=== PATIENT | female | born 1940 | race Caucasian/White ===

== ENCOUNTER 2016-10-20 21:33 | Inpatient (IN) | payer OTHER ==
[~2016-10-20] VITALS: Ht 149.9 cm; Wt 33.7 kg
[~2016-10-20 21:33] MED LIST: ASPIRIN325 MG PO; ATORVASTATIN CA80 MG; ATROVENT 00.5 MG/2.5 IH; Advair 250/50 Diskus IH; Advair HFA 115/21 IH; CHANTIX1 MG PO; Ceftin PO; ECOTRIN325 MG PO; GLIPIZIDE5 MG PO; LIPITOR80 MG PO; LISINOPRIL-HCT1 EAC3 PO; METOPROLOL SUC100 MG PO; PROVENTIL,2.5 MG/0.5 IH; Proair HFA IH; SPIRIVA1 INHALATI IH; SPIRIVA1 INHALATI PO; TOPROL XL100 MG PO; Theo-Dur,Theocron PO; Ultram PO; ZESTORETIC 10-1 EAC1 PO; predniSONE PO
[2016-10-20 21:54] LABS: HEMATOCRIT 45.3 % (36.0-46.0); MCH 29.5 PG (29.0-34.0); MCHC 32.9 G/DL (30.0-36.0); MCV 89.7 FL (83-99); MEAN PLAT.VOLUME 10.4 uM^3 (9.5-12.4); PLATELET COUNT 243 K/uL (156-360); RBC DIS.WIDTH-CV 14.1 % (11.8-14.6); RBC DIS.WIDTH-SD 46.1 % (39-53); RED BLOOD COUNT 5.05 M/uL (3.80-5.20); WHITE BLOOD COUNT 14.6 K/uL (4.1-10.2)
[2016-10-20 22:01] LABS: PROTHROMBIN TIME 10.6 SEC (10.2-12.9)
[2016-10-20 22:05] LABS: CHLORIDE 102 mEq/L (99-109); POTASSIUM 3.2 mEq/L (3.7-5.4); SODIUM 136 mEq/L (136-147)
[2016-10-20 22:07] LABS: GLUCOSE 214 mg/dL (70-99)
[2016-10-20 22:08] LABS: ANION GAP 12 MEQ/L (2-14)
[2016-10-20 22:11] LABS: GFR ESTIMATE (CALCULATED) > 59 mL/min/; UREA NITROGEN (BUN) 11 mg/dL (9-23)
[2016-10-20 22:15] LABS: TROP-I INTERPRETATION NEGATIVE; TROPONIN-I 0.02 ng/mL (0.0-0.30)
[2016-10-21 01:36] LABS: CHLORIDE 105 mEq/L (99-109); POTASSIUM 3.4 mEq/L (3.7-5.4); SODIUM 137 mEq/L (136-147)
[2016-10-21 01:39] LABS: GLUCOSE 141 mg/dL (70-99)
[2016-10-21 01:40] LABS: ANION GAP 11 MEQ/L (2-14)
[2016-10-21 01:41] LABS: TOTAL BILIRUBIN 0.3 mg/dL (0.0-1.0)
[2016-10-21 01:42] LABS: ALKALINE PHOSPHATASE 62 IU/L (3-129); GFR ESTIMATE (CALCULATED) > 59 mL/min/
[2016-10-21 01:44] LABS: UREA NITROGEN (BUN) 10 mg/dL (9-23)
[2016-10-21 01:57] VITALS: BP 174/102
[2016-10-21 02:43] LABS: ADD MIUA? NO; BILIRUBIN NEGATIVE; BLOOD NEGATIVE; COLOR STRAW ((YELLOW)); GLUCOSE (STRIP) 150; KETONES 5; LEUKOCYTES NEGATIVE; NITRITE NEGATIVE; PROTEIN (STRIP) NEGATIVE; SPECIFIC GRAVITY 1.006 (1.000-1.030); UCUL ADDED? NO; UROBILINOGEN 0.2 MG/DL (0.2-1.0)
[2016-10-21 06:26] LABS: POINT-OF-CARE METER ID UU14117124
[2016-10-21 06:54] LABS: TROP-I INTERPRETATION NEGATIVE; TROPONIN-I 0.09 ng/mL (0.0-0.30)
[2016-10-21 07:13] LABS: Estimated Average Glucose 134 mg/dL (70-123); HEMOGLOBIN A1c (GLYCOHEMOGLOB) 6.3 % HGB (Below 5.7)
[2016-10-21 08:06] VITALS: BP 158/80
[2016-10-21 08:08] VITALS: BP 138/88
[2016-10-21 11:21] VITALS: BP 138/65
[2016-10-21 11:47] LABS: POINT-OF-CARE METER ID UU14117124
[2016-10-21 13:26] LABS: TROP-I INTERPRETATION NEGATIVE; TROPONIN-I 0.06 ng/mL (0.0-0.30)
[2016-10-21 15:43] VITALS: BP 125/74
[2016-10-21 16:22] LABS: POINT-OF-CARE METER ID UU14188577
[2016-10-21 21:29] LABS: POINT-OF-CARE METER ID UU13113675
[2016-10-21 22:54] VITALS: BP 120/56
[2016-10-22 02:48] VITALS: BP 103/57
[2016-10-22 06:33] LABS: POINT-OF-CARE METER ID UU14117124
[2016-10-22 06:45] LABS: BASOPHIL COUNT 0.1 K/uL (0-0.1); EOSINOPHIL (%) 0.1 % (0-5); IMMATURE GRANULOCYTE (%) 0.5 % (0.0-0.7); IMMATURE GRANULOCYTE COUNT 0.1 K/uL; INSTRUMENT ABS NEUTROPHIL CT 12.4 K/uL; LYMPHOCYTE COUNT 1.7 K/uL (1.0-2.8); MCH 28.9 PG (29.0-34.0); MCHC 31.6 G/DL (30.0-36.0); MCV 91.6 FL (83-99); MEAN PLAT.VOLUME 10.6 uM^3 (9.5-12.4); MONOCYTE (%) 8.3 % (3-12); MONOCYTE COUNT 1.3 K/uL (0-0.8); NEUTROPHIL (%) 79.6 % (45-76); NEUTROPHIL COUNT 12.4 K/uL (1.8-6.4); PLATELET COUNT 247 K/uL (156-360); RBC DIS.WIDTH-SD 47.5 % (39-53); RED BLOOD COUNT 4.15 M/uL (3.80-5.20); WHITE BLOOD COUNT 15.6 K/uL (4.1-10.2)
[2016-10-22 07:05] LABS: ALKALINE PHOSPHATASE 54 IU/L (3-129); ANION GAP 9 MEQ/L (2-14); CHLORIDE 101 MEQ/L (99-109); GFR ESTIMATE (CALCULATED) > 59 mL/min/; GLUCOSE 169 mg/dL (70-99); POTASSIUM 3.3 MEQ/L (3.7-5.4); SAMPLE HEMOLYSIS CHECK 0; SAMPLE ICTERIC CHECK 0; SAMPLE LIPEMIA CHECK 0; SODIUM 135 MEQ/L (136-147); TOTAL BILIRUBIN 0.7 MG/DL (0.0-1.0); UREA NITROGEN (BUN) 9 mg/dL (9-23)
[2016-10-22 08:25] VITALS: BP 117/57
[2016-10-22 11:39] LABS: POINT-OF-CARE METER ID UU14117124
[2016-10-22 12:51] VITALS: BP 105/52
[2016-10-22 16:25] VITALS: BP 99/54
[2016-10-22 16:55] LABS: POINT-OF-CARE METER ID UU14117124
[2016-10-22 19:46] VITALS: BP 97/51
[2016-10-22 22:10] LABS: POINT-OF-CARE METER ID UU14117124
[2016-10-22 23:30] VITALS: BP 137/65
[2016-10-23 03:49] VITALS: BP 163/74
[2016-10-23 06:42] LABS: BASOPHIL COUNT 0.1 K/uL (0-0.1); EOSINOPHIL (%) 0.2 % (0-5); HEMATOCRIT 34.5 % (36.0-46.0); IMMATURE GRANULOCYTE (%) 0.6 % (0.0-0.7); IMMATURE GRANULOCYTE COUNT 0.1 K/uL; INSTRUMENT ABS NEUTROPHIL CT 9.3 K/uL; LYMPHOCYTE COUNT 1.7 K/uL (1.0-2.8); MCH 28.9 PG (29.0-34.0); MCHC 31.3 G/DL (30.0-36.0); MCV 92.2 FL (83-99); MEAN PLAT.VOLUME 10.7 uM^3 (9.5-12.4); MONOCYTE (%) 10.3 % (3-12); MONOCYTE COUNT 1.3 K/uL (0-0.8); NEUTROPHIL (%) 74.7 % (45-76); NEUTROPHIL COUNT 9.3 K/uL (1.8-6.4); PLATELET COUNT 226 K/uL (156-360); RBC DIS.WIDTH-SD 47.8 % (39-53); RED BLOOD COUNT 3.74 M/uL (3.80-5.20); WHITE BLOOD COUNT 12.4 K/uL (4.1-10.2)
[2016-10-23 07:06] LABS: ANION GAP 8 MEQ/L (2-14); CHLORIDE 105 MEQ/L (99-109); GFR ESTIMATE (CALCULATED) > 59 mL/min/; GLUCOSE 125 mg/dL (70-99); SAMPLE HEMOLYSIS CHECK 0; SAMPLE ICTERIC CHECK 0; SAMPLE LIPEMIA CHECK 0; SODIUM 134 MEQ/L (136-147); UREA NITROGEN (BUN) 8 mg/dL (9-23)
[2016-10-23 07:07] LABS: POTASSIUM 4.9 MEQ/L (3.7-5.4)
[2016-10-23 07:13] LABS: POINT-OF-CARE METER ID UU14117124
[2016-10-23 08:14] VITALS: BP 172/54
[2016-10-23 11:27] LABS: POINT-OF-CARE METER ID UU14208753
[2016-10-23 11:31] VITALS: BP 116/59
[2016-10-23 16:00] VITALS: BP 121/57
[2016-10-23 20:19] VITALS: BP 146/67
[2016-10-23 21:36] LABS: POINT-OF-CARE METER ID UU14208753
[2016-10-24 00:24] VITALS: BP 135/58
[2016-10-24 03:49] VITALS: BP 128/66
[2016-10-24 06:45] LABS: POINT-OF-CARE METER ID UU14188577
[2016-10-24 06:50] LABS: EOSINOPHIL (%) 0 % (0-5); HEMATOCRIT 34.4 % (36.0-46.0); IMMATURE GRANULOCYTE (%) 0.7 % (0.0-0.7); IMMATURE GRANULOCYTE COUNT 0.1 K/uL; INSTRUMENT ABS NEUTROPHIL CT 9.9 K/uL; LYMPHOCYTE COUNT 0.6 K/uL (1.0-2.8); MCH 29.1 PG (29.0-34.0); MCHC 32.6 G/DL (30.0-36.0); MCV 89.4 FL (83-99); MEAN PLAT.VOLUME 10.4 uM^3 (9.5-12.4); MONOCYTE (%) 1.2 % (3-12); MONOCYTE COUNT 0.1 K/uL (0-0.8); NEUTROPHIL (%) 92.7 % (45-76); NEUTROPHIL COUNT 9.9 K/uL (1.8-6.4); PLATELET COUNT 282 K/uL (156-360); RBC DIS.WIDTH-CV 13.7 % (11.8-14.6); RBC DIS.WIDTH-SD 44.9 % (39-53); RED BLOOD COUNT 3.85 M/uL (3.80-5.20); WHITE BLOOD COUNT 10.7 K/uL (4.1-10.2)
[2016-10-24 07:55] LABS: ALKALINE PHOSPHATASE 61 IU/L (3-129); ANION GAP 13 MEQ/L (2-14); CHLORIDE 95 MEQ/L (99-109); GFR ESTIMATE (CALCULATED) > 59 mL/min/; SAMPLE HEMOLYSIS CHECK 0; SAMPLE ICTERIC CHECK 0; SAMPLE LIPEMIA CHECK 0; SODIUM 132 MEQ/L (136-147); TOTAL BILIRUBIN 0.8 MG/DL (0.0-1.0); UREA NITROGEN (BUN) 9 mg/dL (9-23)
[2016-10-24 07:56] LABS: GLUCOSE 208 mg/dL (70-99); POTASSIUM 3.6 MEQ/L (3.7-5.4)
[2016-10-24 08:02] VITALS: BP 140/64
[2016-10-24 11:57] VITALS: BP 127/60
[2016-10-24 12:06] LABS: POINT-OF-CARE METER ID UU14188577
[2016-10-24 15:59] VITALS: BP 160/81
[2016-10-24 16:04] LABS: POINT-OF-CARE METER ID UU14188577
[2016-10-24 22:06] LABS: POINT-OF-CARE METER ID UU14188577
[2016-10-24 23:36] VITALS: BP 182/79
[2016-10-25 04:13] VITALS: BP 139/70
[2016-10-25 07:02] LABS: POINT-OF-CARE METER ID UU14117124
[2016-10-25 07:10] VITALS: BP 118/86
[2016-10-25 08:36] LABS: BASE EXCESS 1.4 mEq/L (-3 to +3); BICARBONATE 24.7 mEq/L (22-26); CARBOXY HGB 2.2 % (0-5); COMMENTS - BLOOD GASES A+C+; DEVICE HFNC; METHEMOGLOBIN 1.8 % (0-1.5); O2 FLOW 12 L/MIN; PCO2 34 mm Hg (35-45); PO2 55 mm Hg (80-100); SITE LR; TOTAL RESP RATE 20 resp/min; pH 7.47 (7.35-7.45)
[2016-10-25 11:53] LABS: POINT-OF-CARE METER ID UU14117124
[2016-10-25 16:08] VITALS: BP 116/55
[2016-10-25 16:10] LABS: POINT-OF-CARE METER ID UU14117124
[2016-10-25 21:46] LABS: POINT-OF-CARE METER ID UU14117124
[2016-10-26 00:02] VITALS: BP 128/60
[2016-10-26 05:05] VITALS: BP 122/59
[2016-10-26 06:19] LABS: POINT-OF-CARE METER ID UU14117124
[2016-10-26 07:39] LABS: ALKALINE PHOSPHATASE 43 IU/L (3-129); ANION GAP 8 MEQ/L (2-14); CHLORIDE 99 MEQ/L (99-109); GFR ESTIMATE (CALCULATED) > 59 mL/min/; GLUCOSE 172 mg/dL (70-99); POTASSIUM 3.3 MEQ/L (3.7-5.4); SAMPLE HEMOLYSIS CHECK 0; SAMPLE ICTERIC CHECK 0; SAMPLE LIPEMIA CHECK 0; SODIUM 136 MEQ/L (136-147); UREA NITROGEN (BUN) 14 mg/dL (9-23)
[2016-10-26 07:40] LABS: TOTAL BILIRUBIN 0.5 MG/DL (0.0-1.0)
[2016-10-26 07:50] VITALS: BP 127/60
[2016-10-26 11:04] LABS: POINT-OF-CARE METER ID UU14117124
[2016-10-26 11:31] VITALS: BP 105/58
[2016-10-26 16:39] VITALS: BP 130/62
[2016-10-26 16:44] LABS: POINT-OF-CARE METER ID UU14117124
[2016-10-26 19:58] VITALS: BP 141/63
[2016-10-26 22:02] LABS: POINT-OF-CARE METER ID UU14117124
[2016-10-27 00:18] VITALS: BP 134/68
[2016-10-27 03:48] VITALS: BP 142/67
[2016-10-27 07:14] LABS: ANION GAP 6 MEQ/L (2-14); CHLORIDE 102 MEQ/L (99-109); GFR ESTIMATE (CALCULATED) > 59 mL/min/; GLUCOSE 114 mg/dL (70-99); POTASSIUM 4.7 MEQ/L (3.7-5.4); SAMPLE HEMOLYSIS CHECK 0; SAMPLE ICTERIC CHECK 0; SAMPLE LIPEMIA CHECK 0; SODIUM 136 MEQ/L (136-147); UREA NITROGEN (BUN) 15 mg/dL (9-23)
[2016-10-27 08:00] VITALS: BP 152/75
[2016-10-27 11:30] VITALS: BP 153/71
[2016-10-27 15:45] VITALS: BP 133/64
[2016-10-27 16:41] LABS: POINT-OF-CARE METER ID UU14117124
[2016-10-27 17:53] LABS: POINT-OF-CARE METER ID UU14117124
[2016-10-27 19:53] VITALS: BP 148/71
[2016-10-27 22:03] LABS: POINT-OF-CARE METER ID UU14208753
[2016-10-28] VITALS (7 sets, daily range): BP systolic 123–160; BP diastolic 63–76
[2016-10-28 13:41] LABS: POINT-OF-CARE METER ID UU14208753
[2016-10-28 21:39] LABS: POINT-OF-CARE METER ID UU14208753
[2016-10-29 03:47] VITALS: BP 140/66
[2016-10-29 06:33] LABS: EOSINOPHIL COUNT 0.2 K/uL (0-0.3); HEMATOCRIT 37.1 % (36.0-46.0); IMMATURE GRANULOCYTE (%) 3.6 % (0.0-0.7); IMMATURE GRANULOCYTE COUNT 0.5 K/uL; INSTRUMENT ABS NEUTROPHIL CT 10.5 K/uL; MCHC 32.6 G/DL (30.0-36.0); MONOCYTE (%) 8.4 % (3-12); MONOCYTE COUNT 1.2 K/uL (0-0.8); NEUTROPHIL (%) 72.8 % (45-76); NEUTROPHIL COUNT 10.5 K/uL (1.8-6.4); RBC DIS.WIDTH-CV 13.7 % (11.8-14.6); RBC DIS.WIDTH-SD 44.1 % (39-53); RED BLOOD COUNT 4.17 M/uL (3.80-5.20); WHITE BLOOD COUNT 14.5 K/uL (4.1-10.2)
[2016-10-29 06:36] LABS: POINT-OF-CARE METER ID UU14188577
[2016-10-29 06:36] LABS: PLATELET COUNT 369 K/uL (156-360)
[2016-10-29 06:46] LABS: ALKALINE PHOSPHATASE 48 IU/L (3-129); ANION GAP 8 MEQ/L (2-14); CHLORIDE 94 MEQ/L (99-109); GFR ESTIMATE (CALCULATED) > 59 mL/min/; SAMPLE HEMOLYSIS CHECK 0; SAMPLE ICTERIC CHECK 0; SAMPLE LIPEMIA CHECK 0; SODIUM 133 MEQ/L (136-147); TOTAL BILIRUBIN 0.6 MG/DL (0.0-1.0); UREA NITROGEN (BUN) 14 mg/dL (9-23)
[2016-10-29 06:47] LABS: GLUCOSE 80 mg/dL (70-99)
[2016-10-29 07:37] VITALS: BP 153/71
[2016-10-29 11:46] VITALS: BP 112/62
[2016-10-29 11:50] LABS: POINT-OF-CARE METER ID UU14117124
[2016-10-29 16:15] VITALS: BP 120/59
[2016-10-29 16:27] LABS: POINT-OF-CARE METER ID UU14208753
[2016-10-29 19:34] VITALS: BP 109/63
[2016-10-29 21:54] LABS: POINT-OF-CARE METER ID UU14188577
[2016-10-29 23:19] VITALS: BP 117/65
[2016-10-30 03:51] VITALS: BP 141/68
[2016-10-30 06:37] LABS: EOSINOPHIL (%) 3.5 % (0-5); EOSINOPHIL COUNT 0.5 K/uL (0-0.3); HEMATOCRIT 34.4 % (36.0-46.0); IMMATURE GRANULOCYTE (%) 2.3 % (0.0-0.7); IMMATURE GRANULOCYTE COUNT 0.4 K/uL; INSTRUMENT ABS NEUTROPHIL CT 11.5 K/uL; LYMPHOCYTE COUNT 1.6 K/uL (1.0-2.8); MCH 29.8 PG (29.0-34.0); MCHC 32.8 G/DL (30.0-36.0); MCV 90.8 FL (83-99); MEAN PLAT.VOLUME 9.8 uM^3 (9.5-12.4); MONOCYTE (%) 8.6 % (3-12); MONOCYTE COUNT 1.3 K/uL (0-0.8); NEUTROPHIL COUNT 11.5 K/uL (1.8-6.4); PLATELET COUNT 345 K/uL (156-360); RBC DIS.WIDTH-CV 14.3 % (11.8-14.6); RBC DIS.WIDTH-SD 46.8 % (39-53); RED BLOOD COUNT 3.79 M/uL (3.80-5.20); WHITE BLOOD COUNT 15.3 K/uL (4.1-10.2)
[2016-10-30 07:08] LABS: ANION GAP 6 MEQ/L (2-14); CHLORIDE 99 MEQ/L (99-109); GFR ESTIMATE (CALCULATED) > 59 mL/min/; POTASSIUM 3.5 MEQ/L (3.7-5.4); SAMPLE HEMOLYSIS CHECK 0; SAMPLE ICTERIC CHECK 0; SAMPLE LIPEMIA CHECK 0; SODIUM 134 MEQ/L (136-147); UREA NITROGEN (BUN) 13 mg/dL (9-23)
[2016-10-30 07:09] LABS: GLUCOSE 49 mg/dL (70-99)
[2016-10-30] MEDS ORDERED: K-DUR20 MEQ PO (07:59)
[2016-10-30] MEDS ORDERED: DOCUSATE SODIU100 MG PO (07:59)
[2016-10-30] MEDS ORDERED: BUPROPION HCL150 M2 PO (07:59)
[2016-10-30] MEDS ORDERED: THERAGRAN1 TABLET PO (07:59)
[2016-10-30] MEDS ORDERED: ENDOCET 5-3251 EACH PO (07:59)
[2016-10-30] MEDS ORDERED: ADVAIR HFA120 INHALA IH (07:59)
[2016-10-30] MEDS ORDERED: FAMOTIDINE20 MG PO (07:59)
[2016-10-30] MEDS ORDERED: DUONEB 2.5-0.5 M3 ML AEROSOL (07:59)
[2016-10-30] MEDS ORDERED: TYLENOL REGULA325 MG PO (07:59)
[2016-10-30] MEDS ORDERED: OYSTER SHELL 51 EACH PO (07:59)
[2016-10-30] MEDS ORDERED: VITAMIN D2000 UNI1 PO (07:59)
[2016-10-30] MEDS ORDERED: NICOTINE PATCH1 EAC2 TD (07:59)
[2016-10-30] MEDS ORDERED: NOVOLIN N100 UNITS/ SC (07:59)
[2016-10-30] MEDS ORDERED: PREDNISONE20 MG PO (07:59)
[2016-10-30 08:25] LABS: POINT-OF-CARE METER ID UU14188577
[2016-10-30 08:51] VITALS: BP 118/56
[2016-10-30 10:31] LABS: POINT-OF-CARE METER ID UU14188577
[2016-10-30 12:16] VITALS: BP 120/57
== END 2016-10-30 13:25 | DRG 480 ==
LOC: EME 21:33 → EDOF 23:29 → 3EAST 23:29 → ENRESERV 23:31 → 3EAST 10-21 01:21
PROVIDERS: Emergency Medicine; Internal Medicine; Internal Medicine Pulmonary Disease; Nurse Practitioner Adult Health; Pediatrics; Physician Assistant Medical
PROC: 0QS606Z Reposition Right Upper Femur with Intramedullary Internal Fixation Device, Open Approach (ICD-10-PCS; principal; 2016-10-21)
DX: S72.141A Displaced intertrochanteric fracture of right femur, initial encounter for closed fracture (principal); S72.041A Displaced fracture of base of neck of right femur, initial encounter for closed fracture; Y92.009 Unspecified place in unspecified non-institutional (private) residence as the place of occurrence of the external cause; W01.0XXA Fall on same level from slipping, tripping and stumbling without subsequent striking against object, initial encounter; J44.0 Chronic obstructive pulmonary disease with (acute) lower respiratory infection; J18.9 Pneumonia, unspecified organism; I10 Essential (primary) hypertension; J44.1 Chronic obstructive pulmonary disease with (acute) exacerbation; E87.6 Hypokalemia; E11.65 Type 2 diabetes mellitus with hyperglycemia; T38.0X5A Adverse effect of glucocorticoids and synthetic analogues, initial encounter; E78.00 Pure hypercholesterolemia, unspecified; E44.0 Moderate protein-calorie malnutrition; Z68.1 Body mass index [BMI] 19.9 or less, adult; I27.2 Other secondary pulmonary hypertension; I25.10 Atherosclerotic heart disease of native coronary artery without angina pectoris; M85.88 Other specified disorders of bone density and structure, other site; K21.9 Gastro-esophageal reflux disease without esophagitis; I25.2 Old myocardial infarction; K02.9 Dental caries, unspecified; I36.1 Nonrheumatic tricuspid (valve) insufficiency; G43.909 Migraine, unspecified, not intractable, without status migrainosus; R94.31 Abnormal electrocardiogram [ECG] [EKG]; F17.200 Nicotine dependence, unspecified, uncomplicated; Z79.82 Long term (current) use of aspirin; Z79.84 Long term (current) use of oral hypoglycemic drugs; Z75.1 Person awaiting admission to adequate facility elsewhere
CPT/HCPCS: 36600; 71010; 71020; 71275; 73502; 73552; 76000; 80048; 80053; 81003; 82306; 82803; 82948; 83036; 84484; 85025; 85027; 85610; 86850; 86870; 86900; 86901; 86905; 86920; 93005; 93970; 94010; 94640; 94640 76; 94667; 94668; 94760; 94799; 97530 GO; 97530 GP; 99202; 99281; 99285; C1713; J0456; J0692; J1644; J1650; J1815; J2250; J2270; J2405; J2930; J3480; J7030; J7040; J7050; J7512

== ENCOUNTER 2017-10-02 20:40 | Emergency (ER) | payer OTHER ==
[~2017-10-02] VITALS: Ht 144.8 cm; Wt 29.7 kg
[~2017-10-02 20:40] MED LIST changes: +ADVAIR HFA120 INHALA IH; +BUPROPION HCL150 M2 PO; +DOCUSATE SODIU100 MG PO; +DUONEB 2.5-0.5 M3 ML AEROSOL; +ENDOCET 5-3251 EACH PO; +FAMOTIDINE20 MG PO; +K-DUR20 MEQ PO; +NICOTINE PATCH1 EAC2 TD; +NOVOLIN N100 UNITS/ SC; +OYSTER SHELL 51 EACH PO; +PREDNISONE20 MG PO; +THERAGRAN1 TABLET PO; +TYLENOL REGULA325 MG PO; +VITAMIN D2000 UNI1 PO
[2017-10-02 21:54] LABS: BASOPHIL (%) 0.7 % (0-1); BASOPHIL COUNT 0.1 K/uL (0-0.1); EOSINOPHIL (%) 0.3 % (0-5); HEMATOCRIT 50.4 % (36.0-46.0); HEMOGLOBIN 16.7 G/DL (11.9-15.5); IMMATURE GRANULOCYTE (%) 0.4 % (0.0-0.7); LYMPHOCYTE (%) 15.9 % (15-42); LYMPHOCYTE COUNT 2.2 K/uL (1.0-2.8); MCH 29.6 PG (29.0-34.0); MCHC 33.1 G/DL (30.0-36.0); MCV 89.4 FL (83-99); MONOCYTE (%) 5.8 % (3-12); MONOCYTE COUNT 0.8 K/uL (0-0.8); NEUTROPHIL (%) 76.9 % (45-76); NEUTROPHIL COUNT 10.8 K/uL (1.8-6.4); PLATELET COUNT 259 K/uL (156-360); RBC DIS.WIDTH-CV 15.4 % (11.8-14.6); RBC DIS.WIDTH-SD 49.7 % (39-53); RED BLOOD COUNT 5.64 M/uL (3.80-5.20)
[2017-10-02 21:59] LABS: CHLORIDE 102 mEq/L (99-109); POTASSIUM 4.9 mEq/L (3.7-5.4); SODIUM 138 mEq/L (136-147)
[2017-10-02 22:00] LABS: GLUCOSE 128 mg/dL (70-99)
[2017-10-02 22:01] LABS: PTT 25.5 SEC (25-37)
[2017-10-02 22:04] LABS: CREATININE 0.7 mg/dL (0.6-1.3); GFR ESTIMATE (CALCULATED) > 59 mL/min/
[2017-10-02 22:05] LABS: UREA NITROGEN (BUN) 13 mg/dL (9-23)
[2017-10-02 22:06] LABS: TROP-I INTERPRETATION NEGATIVE; TROPONIN-I 0.02 ng/mL (0.0-0.30)
[2017-10-02] MEDS ORDERED: ULTRAM50 MG PO (22:56)
[2017-10-02 23:55] VITALS: BP 144/88
== END 2017-10-03 00:07 | disposition home or self-care (01) ==
LOC: EME → EDBD 20:40 → EME 10-03 00:07
PROVIDERS: Emergency Medicine
DX: S20.219A Contusion of unspecified front wall of thorax, initial encounter (principal); M48.54XA Collapsed vertebra, not elsewhere classified, thoracic region, initial encounter for fracture; I10 Essential (primary) hypertension; X58.XXXA Exposure to other specified factors, initial encounter; E11.9 Type 2 diabetes mellitus without complications; E78.5 Hyperlipidemia, unspecified; I25.10 Atherosclerotic heart disease of native coronary artery without angina pectoris; I25.2 Old myocardial infarction; F17.200 Nicotine dependence, unspecified, uncomplicated; Z88.0 Allergy status to penicillin
CPT/HCPCS: 71046; 80048; 84484; 85025; 85610; 85730; 93005; 99281; 99284